=== PATIENT | female | born 1965 | race Caucasian/White ===

== ENCOUNTER 2017-09-07 15:17 | Emergency (ER) | payer SELFPAY | END 2017-09-07 18:50 | disposition home or self-care (01) | LOC: D.ER 15:17 | DX: J30.9 Allergic rhinitis, unspecified (principal); R05 Cough; R11.10 Vomiting, unspecified; R50.9 Fever, unspecified ==

== ENCOUNTER 2017-09-12 05:05 | Emergency (ER) | payer SELFPAY | END 2017-09-12 06:04 | disposition home or self-care (01) | LOC: D.ER 05:05 | DX: S83.91XA Sprain of unspecified site of right knee, initial encounter (principal); W01.0XXA Fall on same level from slipping, tripping and stumbling without subsequent striking against object, initial encounter; Y93.89 Activity, other specified; Y92.89 Other specified places as the place of occurrence of the external cause; I10 Essential (primary) hypertension ==

== ENCOUNTER 2018-01-13 22:18 | Emergency (ER) | payer SELFPAY ==
[~2018-01-13] VITALS: Ht 152.4 cm; Wt 84.1 kg
[2018-01-13 22:26] VITALS: Ht 152.4 cm; Wt 84.1 kg
[2018-01-14] MEDS ORDERED: NORCO 7.5/325 T1 TA1 PO (02:11)
[2018-01-14 02:26] VITALS: BP 144/81
== END 2018-01-14 02:26 | disposition home or self-care (01) ==
LOC: D.ER 22:18
DX: S93.402A Sprain of unspecified ligament of left ankle, initial encounter (principal); X50.1XXA Overexertion from prolonged static or awkward postures, initial encounter; Y93.89 Activity, other specified; Y92.89 Other specified places as the place of occurrence of the external cause; I10 Essential (primary) hypertension

== ENCOUNTER 2018-10-18 13:14 | Emergency (ER) | payer SELFPAY ==
[~2018-10-18] VITALS: Ht 152.4 cm; Wt 74.2 kg
[~2018-10-18 13:14] MED LIST: NORCO 7.5/325 T1 TA1 PO
[2018-10-18 13:18] VITALS: Ht 152.4 cm; Wt 74.2 kg
[2018-10-18 14:10] LABS: BASOPHILS 0.3 % (0-2); EOSINOPHILS 2.3 % (0-7); HEMATOCRIT 26.1 % (36.0-48.0); MCHC 25.7 g/dL (31.0-37.0); MCV 62.6 fL (80.0-100.0); MEAN PLATELET VOLUME 9.3 fL (7.4-10.4); MONOCYTES 6.5 % (2-11); NEUTROPHILS 69.9 % (40-80); PLATELET COUNT 283 10x3/uL (130-400); RBC 4.17 10x6/uL (4.00-5.40); RDW 20.6 % (11.5-14.5)
[2018-10-18 14:11] LABS: MCH 16.1 pg (26.0-34.0)
[2018-10-18 14:19] LABS: HEMOGLOBIN 6.7 g/dL (12-16)
[2018-10-18 14:23] LABS: ALBUMIN 3.4 g/dL (3.4-5.0); ALKALINE PHOSPHATASE 124 U/L (46-116); ALT (SGPT) 17 U/L (10-68); BILIRUBIN - TOTAL 0.43 mg/dL (0.2-1.3); CALC OSMOLALITY 279 mosm/kg (275-300); CALCIUM 8.8 mg/dL (8.5-10.1); CHLORIDE - SERUM 105 mmol/L (98-107); CREATININE - SERUM 0.6 mg/dL (0.6-1.3); GLUCOSE 109 mg/dL (74-106); POTASSIUM - SERUM 3.9 mmol/L (3.5-5.1); PROTEIN - SERUM 8.1 g/dL (6.4-8.2); SODIUM 141 mmol/L (136-145); UREA NITROGEN 8 mg/dL (7-18); eGFR NON AFRICAN AMERICAN > 90 mL/min (90-120)
[2018-10-18 14:25] LABS: AMYLASE - SERUM 34 U/L (25-115); LIPASE 96 U/L (73-393)
[2018-10-18 14:34] LABS: TROPONIN-I < 0.017 ng/mL (0.000-0.060)
[2018-10-18 15:03] LABS: APPEARANCE HAZY (CLEAR); BILIRUBIN NEGATIVE (NEGATIVE); COLOR YELLOW (YELLOW); GLUCOSE NEGATIVE (NEGATIVE); KETONE NEGATIVE (NEGATIVE); NITRITE NEGATIVE (NEGATIVE); PROTEIN TRACE mg/dL (NEGATIVE); UROBILINOGEN NORMAL (NORMAL)
[2018-10-18 15:06] LABS: EPITHELIAL CELLS 0-5 /hpf (0-5); RED CELLS - URINE 0-5 /hpf (0-5)
[2018-10-18 15:08] LABS: BACTERIA MODERATE /hpf (NONE SEEN); MUCUS <1+ /lpf (NONE SEEN)
[2018-10-18 15:17] LABS: % SATURATION 3 % (15-55); IRON 15 ug/dl (35-150); TOTAL IRON BIND CAPACITY 482 ug/dl (260-445)
[2018-10-18 15:19] LABS: UNSAT IRON BIND CAPACITY 467 ug/dl (150-375)
[2018-10-18] MEDS ORDERED: FERROUS GLUCON324 MG PO (17:44)
[2018-10-18] MEDS ORDERED: ZOFRAN ODT4 MG/UDTAB PO (17:44)
[2018-10-18] MEDS ORDERED: CIPRO250 MG PO (17:44)
[2018-10-18 18:05] VITALS: BP 108/54
== END 2018-10-18 18:06 | disposition home or self-care (01) ==
LOC: D.ER 13:14
PROVIDERS: Family Medicine
DX: N39.0 Urinary tract infection, site not specified (principal); D50.9 Iron deficiency anemia, unspecified

== ENCOUNTER 2019-01-26 07:24 | Emergency (ER) | payer MEDICARE ==
[~2019-01-26] VITALS: Ht 152.4 cm; Wt 74.8 kg
[~2019-01-26 07:24] MED LIST changes: +CIPRO250 MG PO; +FERROUS GLUCON324 MG PO; +ZOFRAN ODT4 MG/UDTAB PO
[2019-01-26 07:31] VITALS: BP 173/88; Ht 152.4 cm; Wt 74.8 kg
[2019-01-26] MEDS ORDERED: KEFLEX500 MG PO (07:50)
== END 2019-01-26 08:01 | disposition home or self-care (01) ==
LOC: D.ER 07:24
DX: J02.9 Acute pharyngitis, unspecified (principal); I10 Essential (primary) hypertension

== ENCOUNTER 2019-05-13 21:52 | Emergency (ER) | payer MEDICARE ==
[~2019-05-13] VITALS: Ht 152.4 cm; Wt 75.0 kg
[~2019-05-13 21:52] MED LIST changes: +KEFLEX500 MG PO
[2019-05-13 22:00] VITALS: Ht 152.4 cm; Wt 75.0 kg
[2019-05-13] MEDS ORDERED: ZOFRAN8 MG PO (23:46)
[2019-05-13] MEDS ORDERED: CYCLOBENZAPRINE10 MG PO (23:46)
[2019-05-14 00:35] VITALS: BP 135/76
== END 2019-05-14 00:25 | disposition home or self-care (01) ==
LOC: D.ER 21:52
DX: S16.1XXA Strain of muscle, fascia and tendon at neck level, initial encounter (principal); W19.XXXA Unspecified fall, initial encounter; Y93.9 Activity, unspecified; Y92.9 Unspecified place or not applicable; F07.81 Postconcussional syndrome; I10 Essential (primary) hypertension; R11.0 Nausea; R42 Dizziness and giddiness

== ENCOUNTER 2019-05-23 22:08 | Inpatient (IN) | payer MEDICARE ==
[~2019-05-23] VITALS: Ht 152.4 cm; Wt 75.0 kg
[~2019-05-23 22:08] MED LIST changes: +CYCLOBENZAPRINE10 MG PO; +ZOFRAN8 MG PO
[2019-05-23 23:51] LABS: LYMPHOCYTES 30.6 % (15-50); MCHC 24.1 g/dL (31.0-37.0); MCV 62.8 fL (80.0-100.0); MEAN PLATELET VOLUME 8.6 fL (7.4-10.4); PLATELET COUNT 321 10x3/uL (130-400); RDW 20.5 % (11.5-14.5)
[2019-05-23 23:52] LABS: MCH 15.1 pg (26.0-34.0)
[2019-05-23 23:53] LABS: HEMOGLOBIN 6.5 g/dL (12-16)
[2019-05-24] VITALS (21 sets, daily range): BP systolic 117–145; BP diastolic 63–89; Ht 152.4 cm; Wt 75.0 kg
[2019-05-24] LABS: CALC OSMOLALITY 264 mosm/kg (275-300); CALCIUM 8.6 mg/dL (8.5-10.1); CARBON DIOXIDE 27.3 mmol/L (21.0-32.0); CHLORIDE - SERUM 101 mmol/L (98-107); CREATININE - SERUM 0.6 mg/dL (0.6-1.3); GLUCOSE 96 mg/dL (74-106); POTASSIUM - SERUM 4.2 mmol/L (3.5-5.1); SODIUM 133 mmol/L (136-145); UREA NITROGEN 9 mg/dL (7-18); eGFR NON AFRICAN AMERICAN > 90 mL/min (90-120)
[2019-05-24 00:06] LABS: ALBUMIN 3.4 g/dL (3.4-5.0); ALKALINE PHOSPHATASE 124 U/L (30-120); ALT (SGPT) 16 U/L (10-68); BILIRUBIN - TOTAL 0.31 mg/dL (0.2-1.3)
[2019-05-24 00:07] LABS: UDS - AMPHET NEGATIVE QUAL (NEGATIVE); UDS - BARB NEGATIVE QUAL (NEGATIVE); UDS - BENZO NEGATIVE QUAL (NEGATIVE); UDS - COCAINE NEGATIVE QUAL (NEGATIVE); UDS - OPIATE NEGATIVE QUAL (NEGATIVE); UDS - PCP NEGATIVE QUAL (NEGATIVE); UDS - THC NEGATIVE QUAL (NEGATIVE)
[2019-05-24 00:11] LABS: APPEARANCE CLEAR (CLEAR); BILIRUBIN NEGATIVE (NEGATIVE); COLOR YELLOW (YELLOW); GLUCOSE NEGATIVE (NEGATIVE); KETONE NEGATIVE (NEGATIVE); NITRITE NEGATIVE (NEGATIVE); PROTEIN NEGATIVE (NEGATIVE); SPECIFIC GRAVITY 1.015 (1.005-1.020); UROBILINOGEN NORMAL (NORMAL)
[2019-05-24 00:12] LABS: BACTERIA NONE SEEN /hpf (NEGATIVE); EPITHELIAL CELLS 0-5 /hpf (0-5); RED CELLS - URINE NONE SEEN /hpf (0-5); WHITE CELLS - URINE 0-5 /hpf (NEGATIVE)
--- NOTE | 2019-05-24 01:20 | NUR ---
PT ARRIVED VIA STRETCHER BY UMER DOE. PT SCOOTED FROM STRETCHER TO BED WITH NO ASSISTANCE. PT ALERT AND ORIENTED, DENIES ANY PAIN. VSS, NO SIGNS OF DISTRESS NOTED. O2 100 ON RA. R FOREARM PIV PATENT, DRESSING CDI. L AC PIV PATENT, DRESSING CDI, SEE IV FLOWSHEET. ABD FIRM, DISTENTED, PT DENIES ANY PAIN/DISCOMFORT/NAUSEA. CALL LIGHT IN REACH, BED IN LOWEST POSITION. WILL MONITOR.
--- NOTE | 2019-05-24 02:30 | NUR ---
PT C/O DULL, THROBBING HEADACHE. PRN MORPHINE GIVEN PER MAR. WILL REASSESS.
--- NOTE | 2019-05-24 02:45 | NUR ---
PT REFUSING BLOOD PRODUCTS AT THIS TIME, STATES SHE HAS HAD TRANSFUSION REACTIONS IN THE PAST. STATES SHE BELIEVES THE BLEEDING IS FROM HEMORRHOIDS. DENIES ANY DIZZINESS OR NAUSEA.
--- NOTE | 2019-05-24 03:30 | NUR ---
PT REQUESTING ICE CHIPS. DENIES ANY OTHER NEEDS AT THIS TIME, WILL CONTINUE TO MONITOR.
--- NOTE | 2019-05-24 05:25 | NUR ---
PT RESTING QUIETLY IN BED. DENIES ANY NEEDS AT THIS TIME. CALL LIGHT IN REACH, WILL CONTINUE TO MONITOR.
[2019-05-24 05:55] LABS: APTT 25.1 SECONDS (22.8-39.4); INR 1.04 (0.85-1.17); PROTIME 13.6 SECONDS (11.6-15.0)
[2019-05-24 06:13] LABS: BASOPHILS 0.3 % (0-2); EOSINOPHILS 2.1 % (0-7); HEMATOCRIT 23.3 % (36.0-48.0); IMMATURE GRANULOCYTES 0.1 % (0-5); LYMPHOCYTES 23.4 % (15-50); MCHC 24.5 g/dL (31.0-37.0); MCV 61.8 fL (80.0-100.0); MONOCYTES 6.3 % (2-11); NEUTROPHILS 67.8 % (40-80); PLATELET COUNT 276 10x3/uL (130-400); RBC 3.77 10x6/uL (4.00-5.40); RDW 21.3 % (11.5-14.5); WBC 7.3 10x3/uL (4.8-10.8)
[2019-05-24 06:17] LABS: ALBUMIN 3.1 g/dL (3.4-5.0); ALKALINE PHOSPHATASE 111 U/L (30-120); ALT (SGPT) 16 U/L (10-68); BILIRUBIN - TOTAL 0.39 mg/dL (0.2-1.3); CALC OSMOLALITY 273 mosm/kg (275-300); CALCIUM 8.2 mg/dL (8.5-10.1); CARBON DIOXIDE 27.8 mmol/L (21.0-32.0); CHLORIDE - SERUM 103 mmol/L (98-107); CREATININE - SERUM 0.6 mg/dL (0.6-1.3); FERRITIN 3 ng/mL (3-244); GLUCOSE 94 mg/dL (74-106); MAGNESIUM - SERUM 2.2 mg/dL (1.8-2.4); PHOSPHOROUS 3.4 mg/dL (2.5-4.9); PROTEIN - SERUM 7.5 g/dL (6.4-8.2); SODIUM 138 mmol/L (136-145); UREA NITROGEN 8 mg/dL (7-18); eGFR NON AFRICAN AMERICAN > 90 mL/min (90-120)
[2019-05-24 06:20] LABS: HEMOGLOBIN 5.7 g/dL (12-16); MCH 15.1 pg (26.0-34.0)
--- NOTE | 2019-05-24 06:30 | NUR ---
PT INFORMED OF CRITICAL HGB LEVEL AND INFORMED OF BENEFITS OF PRBC TRANSFUSION, PT STILL REFUSING BLOOD TRANSFUSTION AT THIS TIME.
[2019-05-24 06:34] LABS: % SATURATION 2 % (15-55); IRON 12 ug/dl (35-150); TOTAL IRON BIND CAPACITY 416 ug/dl (260-445); UNSAT IRON BIND CAPACITY 404 ug/dl (150-375)
--- NOTE | 2019-05-24 07:30 | NUR ---
BEDSIDE SHIFT REPORT GIVEN. ASSUMED CARE FOR THIS PT. INTRODUCED MYSELF PRIMARY RN FOR TODAYS SHIFT. PT RESTING QUIETLY IN BED DENIES ANY CURRENT PAIN OR NEEDS AT THIS TIME. CL IN REACH, WILL CHECK CHART AND ORDERS AND CPOC.
--- NOTE | 2019-05-24 08:04 | NUR ---
CONSENTS OBTAINED FOR EGD WITH TIVA AND PROCEDURE EXPLAINED TO PT. PT IS NOW NPO AND VERBALIZED UNDERSTANDING. DENIES ANY QUESTIONS OR CONCERNS.
--- NOTE | 2019-05-24 08:53 | NUR ---
ASSISTED PT TO BEDSIDE COMMODE. PT VOIDED 400ML CONCENTRATED URINE. PT DENIES ANY HEADACHE OR DIZZINESS AND STATES SHE IS FEELING GOOD OVERALL. PT STATES SHE IS CONSIDERING BLOOD TRANSFUSION AND WILL DISCUSS WITH HER DAUGHTER. CL IN REACH, BED IN LOWEST, SIDE RAILS X2. WILL CTM.
--- NOTE | 2019-05-24 11:25 | NUR ---
PT REMAINS NPO. DENIES ANY CURRENT PAIN OR NEEDS. WAITING ON EGD FOR LATER THIS AFTERNOON. PTS DAUGHTER ALEN CALLED AND WAS UPDATED ON STATUS PER PTS REQUEST. CL IN REACH, BED IN LOWEST, SIDE RAILS X2. WILL CTM.
[2019-05-24 12:22] LABS: HEMATOCRIT 22.1 % (36.0-48.0); HEMOGLOBIN 5.6 g/dL (12-16)
--- NOTE | 2019-05-24 12:31 | NUR ---
HGB RESULTED AND REMAINS CRITICALLY LOW. EXPLAINED TO PT AND SHE IS COMPLETELY AWARE AND VERBALIZED UNDERSTANDING. PT WAS GOING TO AGREE FOR TRANSFUSION AND ALLOW ME TO GIVE HER BENADRYL A PRE-MEDICATION TO HELP WITH ANY POSSIBLE REACTION HOWEVER NOW STATES SHE WANTS TO WAIT ON THE EGD TO BE DONE AND THEN DECIDE. EXTENSIVE TEACHING PROVIDED BUT PT IS FULLY AWARE AND STILL DOES NOT WANT BLOOD AT THIS TIME. VSS AND PT DENIES ANY DIZZINESS OR S/S OF ANEMIA AT THIS TIME. WILL CTM.
--- NOTE | 2019-05-24 14:30 | NUR ---
PT RESTING QUIETLY IN BED WATCHING TV. VSS. PT REMAINS NPO WAITING ON PROCEDURE FOR LATER THIS AFTERNOON. PT DENIES ANY CURRENT PAIN OR NEEDS AT THIS TIME. CL IN REACH. WILL CTM.
--- NOTE | 2019-05-24 16:32 | NUR ---
GI LAB CALLED TO PRE-OP PT. PRE-OP MEDICATIONS GIVEN ORDERED. ASSISTED PT TO BEDSIDE COMMODE AND SHE VOIDED 500ML YELLOW URINE. PT DENIES ANY CURRENT PAIN OR NEEDS AT THIS TIME. CL IN REACH, BED IN LOWEST, SIDE RAILS X2. WILL CTM.
--- NOTE | 2019-05-24 17:37 | NUR ---
EGD COMPLETED AT BEDSIDE. PT AWAKE AND RESTING QUIETLY IN BED. AT BEDSIDE AND EXPLAINED FINDINGS TO PT. NO ACTIVE BLEED AND HE STATES PT MAY TRANSFER TO FLOOR IF OKAY WITH PRIMARY. PT STILL IS REFUSING A BLOOD TRANSFUSION AND STATES THIS IS JUST HER BASELINE. PT IS CHOOSING TO HAVE A COLONOSCOPY TOMORROW AND HER HEMMORROIDS LOOKED AT FOR FURTHER BLEEDING. PROCEDURE AND RISK EXPLAINED TO PT AND PT VERBALIZED UNDERSTANDING. PT CAN HAVE CLEAR LIQUID UNTIL MIDNIGHT AND I WILL PROVIDE IT TO HER. NO CURRENT NEEDS. WILL CTM.
--- NOTE | 2019-05-24 18:30 | NUR ---
PT WORKING ON DRINKING HER GOLYTELY DENIES ANY CURRENT PAIN OR NEEDS. VSS. PT IS GOING TO BE NPO FOR COLONOSCOPY TOMORROW AND VERBALIZED UNDERSTANDING. D/C PROTONIX DRIP ORDERED. NO CURRENT NEEDS.
--- NOTE | 2019-05-24 19:00 | NUR ---
BEDSIDE REPORT AND SHIFT ASSESSMENT COMPLETE, SEE FLOWSHEET. VSS, NO SIGNS OF ACUTE DISTRESS NOTED. PT DENIES ANY NEEDS AT THIS TIME.
[2019-05-24 19:13] LABS: HEMATOCRIT 23.4 % (36.0-48.0)
[2019-05-24 19:15] LABS: HEMOGLOBIN 5.7 g/dL (12-16)
--- NOTE | 2019-05-24 21:00 | NUR ---
FAMILY ON PHONE, UPDATE GIVEN.
--- NOTE | 2019-05-24 23:00 | NUR ---
PT SITTING ON BEDSIDE COMMODE, DRINKING BOWEL PREP. DENIES ANY NEEDS AT THIS TIME. CALL LIGHT IN REACH.
--- NOTE | 2019-05-25 01:00 | NUR ---
PT SLEEPING. VSS, NO SIGNS OF ACUTE DISTRESS NOTED.
[2019-05-25 01:27] LABS: HEMATOCRIT 22.4 % (36.0-48.0)
[2019-05-25 01:38] LABS: HEMOGLOBIN 5.7 g/dL (12-16)
[2019-05-25 03:00] VITALS: BP 133/80
--- NOTE | 2019-05-25 05:00 | NUR ---
MEDS GIVEN PER MAR. VSS. PT DENIES ANY NEEDS AT THIS TIME.
[2019-05-25 05:24] LABS: ALBUMIN 2.9 g/dL (3.4-5.0); ALKALINE PHOSPHATASE 107 U/L (30-120); ALT (SGPT) 13 U/L (10-68); BILIRUBIN - TOTAL 0.31 mg/dL (0.2-1.3); CALC OSMOLALITY 277 mosm/kg (275-300); CALCIUM 7.9 mg/dL (8.5-10.1); CARBON DIOXIDE 28.2 mmol/L (21.0-32.0); CHLORIDE - SERUM 107 mmol/L (98-107); CREATININE - SERUM 0.6 mg/dL (0.6-1.3); GLUCOSE 85 mg/dL (74-106); MAGNESIUM - SERUM 2.1 mg/dL (1.8-2.4); PHOSPHOROUS 3.6 mg/dL (2.5-4.9); POTASSIUM - SERUM 3.7 mmol/L (3.5-5.1); PROTEIN - SERUM 6.8 g/dL (6.4-8.2); SODIUM 141 mmol/L (136-145); UREA NITROGEN 6 mg/dL (7-18); eGFR NON AFRICAN AMERICAN > 90 mL/min (90-120)
[2019-05-25 05:37] LABS: BASOPHILS 0.2 % (0-2); EOSINOPHILS 2.4 % (0-7); IMMATURE GRANULOCYTES 0.2 % (0-5); LYMPHOCYTES 27.7 % (15-50); MCV 61.5 fL (80.0-100.0); MEAN PLATELET VOLUME 9.2 fL (7.4-10.4); NEUTROPHILS 61.5 % (40-80); PLATELET COUNT 272 10x3/uL (130-400); RBC 3.58 10x6/uL (4.00-5.40); RDW 20.7 % (11.5-14.5)
[2019-05-25 05:38] LABS: HEMOGLOBIN 5.5 g/dL (12-16); MCH 15.4 pg (26.0-34.0)
[2019-05-25 07:00] VITALS: BP 145/77
--- NOTE | 2019-05-25 07:10 | NUR ---
REPORT TAKEN AND CARE ASSUMED AT THIS TIME. INTRODUCED SELF TO PATIENT. INITIAL ASSESSMENT COMPLETE. VSS. DISCUSSED PLAN OF CARE FOR TODAY WITH PATIENT. DENIES ANY NEEDS AT THIS TIME.
--- NOTE | 2019-05-25 08:50 | NUR ---
PATIENT SITTING UP IN BED WATCHING TV. DENIES NEEDS AT THIS TIME.
[2019-05-25 11:00] VITALS: BP 162/86
--- NOTE | 2019-05-25 11:17 | NUR ---
PATIENT RESTING WITH EYES CLOSED. VSS. WILL CONITNUE TO MONITOR.
[2019-05-25 12:10] LABS: HEMATOCRIT 21.8 % (36.0-48.0)
[2019-05-25 12:35] LABS: HEMOGLOBIN 5.4 g/dL (12-16)
--- NOTE | 2019-05-25 13:16 | NUR ---
Nutrition follow-up: Pt for colonoscopy today Labs reviewed Wt: 176# RDN following.
[2019-05-25 15:00] VITALS: BP 141/85
--- NOTE | 2019-05-25 15:29 | NUR ---
PRE-OP EKG COMPLETE
--- NOTE | 2019-05-25 16:50 | NUR ---
GI AT BEDSIDE TO SETUP FOR COLONOSCOPY
--- NOTE | 2019-05-25 17:30 | NUR ---
COLONOSCOPY COMPLETE. PATIENT TOLERATED WELL. A/O X4. VSS.
[2019-05-25 18:24] LABS: HEMOGLOBIN 5.4 g/dL (12-16)
--- NOTE | 2019-05-25 21:46 | NUR ---
PT SITTING UP IN BED AWAKE ALERT AND ORIENTED. NO SINGS OR SYMPTOMS OF DISTRESS NOTED. CONTINENT OF BOWELL AND BLADDER. BOWELL SOUNDS ACTIVE x4 RESPIRATIONS EVEN AND UNLABORED. PT REQUEST FOR SOMETHING TO EAT. TURKEY SANDWHICH SET UP AND SPRITE GIVEN. CALL LIGHT WITH IN REACH AND BED IN LOWEST POSITION. PT ENCOURAGE TO CALL FOR HELP WHEN NEEDED. WILL CONTINUE TO OBSERVE.
[2019-05-25 23:42] VITALS: BP 102/55
--- NOTE | 2019-05-25 23:45 | NUR ---
PT HAS NO COMPLAINTS AT THIS TIME. WILL CONTINUE TO MONITOR
--- NOTE | 2019-05-26 00:46 | NUR ---
NO FURTHER CHANGES. DRESSING TO LEFT GROIN IS CLEAN DRY AND INTACT. STILL NO PEDAL PULSESWITH PALPATION OR WITH DOPPLER. PT IS IN SUPINE POSITION NO SIGNS OR SYMPTOMS OF DISTRESS NOTED. WILL CONTINUE TO OBSERVE.
--- NOTE | 2019-05-26 00:55 | NUR ---
PT LYING IN BED WITH EYES CLOSED. EASILY AWAKEN WITH VOICE STIMULATION. TOLERATED MEAL WELL. WILL CONTINUE TO OBSERVE
[2019-05-26 02:38] VITALS: BP 102/55
[2019-05-26 04:46] LABS: BASOPHILS 0.4 % (0-2); EOSINOPHILS 2.7 % (0-7); HEMATOCRIT 21.2 % (36.0-48.0); LYMPHOCYTES 26.7 % (15-50); MCV 61.1 fL (80.0-100.0); MONOCYTES 6.4 % (2-11); NEUTROPHILS 63.8 % (40-80); PLATELET COUNT 264 10x3/uL (130-400); RBC 3.47 10x6/uL (4.00-5.40); RDW 20.9 % (11.5-14.5); WBC 5.1 10x3/uL (4.8-10.8)
[2019-05-26 04:48] LABS: HEMOGLOBIN 5.3 g/dL (12-16); MCH 15.3 pg (26.0-34.0)
[2019-05-26 04:57] LABS: ALKALINE PHOSPHATASE 106 U/L (30-120); ALT (SGPT) 14 U/L (10-68); BILIRUBIN - TOTAL 0.35 mg/dL (0.2-1.3); CALC OSMOLALITY 277 mosm/kg (275-300); CALCIUM 8.3 mg/dL (8.5-10.1); CARBON DIOXIDE 26.3 mmol/L (21.0-32.0); CHLORIDE - SERUM 105 mmol/L (98-107); CREATININE - SERUM 0.6 mg/dL (0.6-1.3); GLUCOSE 95 mg/dL (74-106); MAGNESIUM - SERUM 2.2 mg/dL (1.8-2.4); PHOSPHOROUS 3.6 mg/dL (2.5-4.9); POTASSIUM - SERUM 3.7 mmol/L (3.5-5.1); SODIUM 141 mmol/L (136-145); UREA NITROGEN 5 mg/dL (7-18); eGFR NON AFRICAN AMERICAN > 90 mL/min (90-120)
--- NOTE | 2019-05-26 05:00 | NUR ---
LAB CALLED CRTICAL H&H 5.3. H&H 5.4 ON 05/25/2019 PT ALERT AND ORIENTED x4 NO SIGNS OR SYMPTOMS OF DISTRESS NOTED. WILL CONTINUE TO OBSERVE.
[2019-05-26 05:14] VITALS: BP 135/74
--- NOTE | 2019-05-26 05:26 | NUR ---
PATIENT UP TO BSC WITHOUT ASSIST. NO CHANGES IN CONDITION FROM PREVIOUS ASSESSMENT. PATIENT CM IS SR WITH 1ST DEGREE BLOCK NOTED AT 91BPM. CALL LIGHT WITHIN REACH. PATIENT VOIDS YELLOW URINE AND IS ALERT AND ORIENTED. CALL LIGHT WITHIN REACH, BED IN LOW POSITION.
[2019-05-26 07:00] VITALS: BP 149/81
[2019-05-26 11:00] VITALS: BP 135/85
[2019-05-26 15:00] VITALS: BP 127/68
[2019-05-26 17:19] LABS: HEMATOCRIT 21.8 % (36.0-48.0)
[2019-05-26 17:21] LABS: HEMOGLOBIN 5.5 g/dL (12-16)
[2019-05-26 19:00] VITALS: BP 151/88
--- NOTE | 2019-05-26 19:15 | NUR ---
PT RESTING IN BED WATCHING TV. SHE DENIES PAIN OR NEEDS. STATES SHE HAD BLOOD IN HER STOOL WHEN SHE HAD A SMALL BOWEL MOVEMENT TODAY. PER PT AND HER DAUGHTER SHE DOES NOT WANT A BLOOD TRANSFUSION UNLESS HER HEMOGLOBIN IS LESS THAN 5. BED LOW AND CALL LIGHT WITHIN REACH.
[2019-05-27] VITALS (7 sets, daily range): BP systolic 99–151; BP diastolic 40–88
--- NOTE | 2019-05-27 00:14 | NUR ---
PT RESTING IN BED WITH EYES CLOSED. VSS. RESPIRATIONS EVEN AND UNLABORED. BED IS LOW AND CALL LIGHT WITHIN REACH.
[2019-05-27 04:27] LABS: BASOPHILS 0.1 % (0-2); EOSINOPHILS 3.1 % (0-7); HEMATOCRIT 24.3 % (36.0-48.0); IMMATURE GRANULOCYTES 0.1 % (0-5); LYMPHOCYTES 24.3 % (15-50); MCHC 25.1 g/dL (31.0-37.0); MONOCYTES 6.2 % (2-11); NEUTROPHILS 66.2 % (40-80); RBC 3.92 10x6/uL (4.00-5.40); RDW 21.2 % (11.5-14.5)
[2019-05-27 04:54] LABS: ALBUMIN 3.2 g/dL (3.4-5.0); ALKALINE PHOSPHATASE 108 U/L (30-120); ALT (SGPT) 8 U/L (10-68); CALC OSMOLALITY 276 mosm/kg (275-300); CALCIUM 8.3 mg/dL (8.5-10.1); CARBON DIOXIDE 23.2 mmol/L (21.0-32.0); CHLORIDE - SERUM 105 mmol/L (98-107); CREATININE - SERUM 0.6 mg/dL (0.6-1.3); GLUCOSE 122 mg/dL (74-106); MAGNESIUM - SERUM 2.1 mg/dL (1.8-2.4); PHOSPHOROUS 2.5 mg/dL (2.5-4.9); POTASSIUM - SERUM 3.9 mmol/L (3.5-5.1); PROTEIN - SERUM 7.4 g/dL (6.4-8.2); SODIUM 139 mmol/L (136-145); UREA NITROGEN 7 mg/dL (7-18); eGFR NON AFRICAN AMERICAN > 90 mL/min (90-120)
[2019-05-27 04:58] LABS: WBC 7.4 10x3/uL (4.8-10.8)
[2019-05-27 05:01] LABS: HEMOGLOBIN 6.1 g/dL (12-16); MCH 15.6 pg (26.0-34.0); PLATELET COUNT 338 10x3/uL (130-400)
--- NOTE | 2019-05-27 06:37 | NUR ---
RESIVED FROM ICU, ALERT AND ORENTED X4 UP AT JORDYN . WALKING IN ROOM STABLE. IV TO LEFT AC, AND RIGHT FA. ORENTED TO ROOM AND CALL LIGHT
--- NOTE | 2019-05-27 07:20 | NUR ---
PT IS RESTING IN BED WITH EYES OPEN. RESPIRATIONS ARE EVEN AND UNLABORED. PT IS AAO X 4. PT STATES "I DONT WANT TO GET ANY BLOOD UNLESS MY LEVEL IS BELOW A 5". PT DENIES A RECENT BM. PT DENIES PRESENCE OF BLOOD WHEN URINATING. PIV TO RIGHT FA IS SL AND FLUSHES WITHOUT DIFFICUTLY. PIV TO LEFT AC INFUSING WITHOUT DIFFICULTY. PT DENIES PRESENCE OF PAIN/N/V. BED IS IN THE LOWEST POSITION. CALL LIGHT AND BEDSIDE TABLE ARE WITIHN REACH. SIDE RAILS X 2. PT DENIES FUTHER NEEDS. WILL CONT TO MONITOR.
--- NOTE | 2019-05-27 14:17 | MORECARE ---
CASE MANAGEMENT DISCHARGE SUMMARY PATIENT: REBECCA SULTANA UNIT: [id number] ADM DATE: 05/24/19 AGE: 54 : 65 SEX: F ROOM/BED: D.2236 AUTHOR: KEISHA,DOC PHYSICIAN: REFERRING PHYSICIAN: ZAIRA KIRKPATRICK MD DATE OF SERVICE: 05/27/19 Discharge Plan Patient Name: REBECCA SULTANA Facility: [facility]:[place] : 1965 Planned Disposition: Home Anticipated Discharge Date: 05/28/19 Discharge Date: Expected LOS: 4 Initial Reviewer: [email or web address] Initial Review Date: 05/27/2019 Generated: 05/27/19 3:17 pm Comments DCP- Discharge Planning Updated by [email or web address]: Tressa Adan on 05/27/19 1:[address] Patient Name: REBECCA SULTANA Admission Status: ER Accout number: [id number] Admission Date: 05-24-2019 : 1965 Admission Diagnosis: Attending: ZAIRA KIRKPATRICK Current LOS: 3 Anticipated DC Date: 05-28-2019 Planned Disposition: Home Primary Insurance: [email or web address] Discharge Planning Comments: CM met with patient to complete initial dc planning assessment. CM educated patient on the CM role and verbal consent given by patient to complete assessment. Patient lives at home with her daughter. At discharge patient plans to return and feels this is a safe discharge. CM discussed availability of home health, rehab services, and medical equipment. Patient denied known discharge needs at this time. CM will continue to follow and will assist as needed with dc plans/needs. Testing Specialist: Tressa Adan DCPIA - Discharge Planning Initial Assessment Updated by [email or web address]: Tressa Adan on 05/27/19 2:15 pm * Is the patient Alert and Oriented? Yes * How many steps to enter\exit or inside your home? 3/0 * PCP Dr. Encinas * Pharmacy [facility] on [address] * Preadmission Environment Home with Family * ADLs Independent * Equipment None * List name and contact numbers for known caregivers / representatives who currently or will assist patient after discharge: Whitney [facility]es [facility] - [phone] * Verbal permission to speak to the caregivers and representatives has been obtained from the patient. Yes * Community resources currently utilized None * Additional services required to return to the preadmission environment? No * Can the patient safely return to the preadmission environment? Yes * Has this patient been hospitalized within the prior 30 days at any hospital? No Patient Name: REBECCA SULTANA Page [phone] at 1417 All edits/amendments must be made on the electronic document DICTATION DATE: 05/27/191416 ELECTRICAL LINE SPLICER: ROCÍO 05/27/191416 RPT#: [id number] DC DATE: STATUS: ADM IN [facility] [address] [place] [address] END OF REPORT
--- NOTE | 2019-05-27 18:23 | NUR ---
PT REPORTS RECENT BM. PT DESCRIBES STOOL "BROWN AND A LITTLE PINKISH". PT REPORTS "A LITTLE" PAIN WITH DEFECATION. PT DENIES FURTHER NEEDS.
[2019-05-27 19:58] LABS: HEMATOCRIT 20.1 % (36.0-48.0)
--- NOTE | 2019-05-27 21:00 | NUR ---
RECEIVED CALL FROM LAB ABOUT CRITICAL LAB OF HGB 5.0. CONSULTED WITH PT ABOUT RECEIVING BLOOD PRODUCTS. PT AGREED TO RECEIVE BLOOD. OBTAINED CONSENTS FOR BLOOD AND PLACED IN CHART. CALLED [facility] AND RECEIVED ORDERS TO TRANSFUSE BLOOD. A/O WITH NO SIGNS OF ACUTE DISTRESS. IV TO THE LT AC WITH NO REDNESS OR SWELLING NOTED. DENIES NEEDS AT THIS TIME. CONTINUE PLAN OF CARE.
--- NOTE | 2019-05-28 00:20 | NUR ---
INITIATED BLOOD TRANSFUSION. VOICES THAT SHE HAS REACTION TO BLOOD. STATES THAT IT MAKES HER SICK FEELING AND THAT SHE TAKES ZOFRAN AND BENADRYL. CALLED [facility] TO GET PREMEDS AND ADMIN. DISCUSSED S/S TO REPORT TO THIS NURSE. WILL CONTINUE TO MONITOR.
--- NOTE | 2019-05-28 03:20 | NUR ---
COMPLETED ONE UNIT OF PRBC. TOLERATED WELL. REQUESTS TO NOT RECEIVED SECOND UNIT OF BLOOD UNTIL AFTER AM LAB. ONCE RESULTS COME BACK SHE WILL DECIDE IF SHE'LL HAVE THE SECOND UNIT. CONTINUE WITH PLAN OF CARE.
[2019-05-28 04:00] VITALS: BP 110/84
[2019-05-28 05:46] LABS: BASOPHILS 0.4 % (0-2); EOSINOPHILS 3.1 % (0-7); IMMATURE GRANULOCYTES 0.3 % (0-5); LYMPHOCYTES 24.8 % (15-50); MCHC 26.9 g/dL (31.0-37.0); NEUTROPHILS 62.4 % (40-80); PLATELET COUNT 294 10x3/uL (130-400); RBC 4.11 10x6/uL (4.00-5.40); RDW 26.6 % (11.5-14.5); WBC 7.5 10x3/uL (4.8-10.8)
[2019-05-28 05:48] LABS: HEMATOCRIT 27.5 % (36.0-48.0); HEMOGLOBIN 7.4 g/dL (12-16); MCV 66.9 fL (80.0-100.0)
[2019-05-28 06:11] LABS: ALBUMIN 3.1 g/dL (3.4-5.0); ALKALINE PHOSPHATASE 99 U/L (30-120); BILIRUBIN - TOTAL 0.61 mg/dL (0.2-1.3); CALC OSMOLALITY 280 mosm/kg (275-300); CALCIUM 8.5 mg/dL (8.5-10.1); CARBON DIOXIDE 23.9 mmol/L (21.0-32.0); CHLORIDE - SERUM 108 mmol/L (98-107); CREATININE - SERUM 0.6 mg/dL (0.6-1.3); GLUCOSE 94 mg/dL (74-106); MAGNESIUM - SERUM 2.3 mg/dL (1.8-2.4); POTASSIUM - SERUM 4.1 mmol/L (3.5-5.1); PROTEIN - SERUM 7.2 g/dL (6.4-8.2); SODIUM 142 mmol/L (136-145); UREA NITROGEN 6 mg/dL (7-18); eGFR NON AFRICAN AMERICAN > 90 mL/min (90-120)
[2019-05-28 06:12] LABS: ALT (SGPT) 15 U/L (10-68); PHOSPHOROUS 3.4 mg/dL (2.5-4.9)
--- NOTE | 2019-05-28 07:10 | NUR ---
ALERT AND ORIENTED, RESTING IN BED WITH EYES OPEN. NO C/O PAIN. NO S/S OF ACUTE DISTRESS NOTED. HGB 7.4 THIS AM. 1 UNIT OF PRBC INFUSED ON PREVIOUS SHIFT. PATIENT WILL ALLOW 2ND UNIT OF PRBC TO BE INFUSED AFTER SHE EATS BREAKFAST. IV TO LEFT AC, SL AND RIGHT FOREARM, NS INFUSING @ KVO. SITES PATENT WITHOUT REDNESS OR SWELLING. DENIES ANY NEEDS AT THIS TIME. CALL LIGHT IN REACH. WILL CONTINUE TO MONITOR.
[2019-05-28 08:17] VITALS: BP 138/71
--- NOTE | 2019-05-28 10:20 | NUR ---
I have reviewed this patient and I concur with the Shift Assessment completed by the Licensed Practical Nurse today this shift.
[2019-05-28 11:48] VITALS: BP 147/78
[2019-05-28 16:29] VITALS: BP 132/97
--- NOTE | 2019-05-28 18:49 | NUR ---
ALERT AND ORIENTED, SITTING UP IN BED EATING SUPPER. C/O HEADACHE, GAVE TYLENOL PER PHYSICIAN ORDER. NO S/S OF ACUTE DISTRESS NOTED. DENIES ANY NEEDS AT THIS TIME. CALL LIGHT IN REACH. WILL CONTINUE TO MONITOR.
--- NOTE | 2019-05-28 19:00 | NUR ---
BEDSIDE REPORT RECEIVED AND CARE OF PT ASSUMED. PT LYING IN HIGH MINA'S POSITION WATCHING TV. IV TO LEFT AC PATENT WITH NS INFUSING AT 75 ML/HR. WILL MONITOR FOR NEEDS.
--- NOTE | 2019-05-28 19:35 | NUR ---
CALLED TO ROOM....PT VOIDED AND PASSED GAS, AND EXPELLED MODERATE AMOUNT OF BRIGHT RED BLOOD INTO TOILET.
[2019-05-28 20:09] LABS: HEMATOCRIT 31.4 % (36.0-48.0)
[2019-05-28 21:26] VITALS: BP 125/61
[2019-05-29 01:22] VITALS: BP 145/79
[2019-05-29 02:16] LABS: HEMATOCRIT 33.1 % (36.0-48.0); HEMOGLOBIN 9.4 g/dL (12-16)
[2019-05-29 05:37] VITALS: BP 146/77
[2019-05-29 06:27] LABS: BASOPHILS 0.3 % (0-2); EOSINOPHILS 3.6 % (0-7); HEMATOCRIT 32.1 % (36.0-48.0); HEMOGLOBIN 9.2 g/dL (12-16); IMMATURE GRANULOCYTES 0.3 % (0-5); LYMPHOCYTES 26.9 % (15-50); MCHC 28.7 g/dL (31.0-37.0); MONOCYTES 8.5 % (2-11); NEUTROPHILS 60.4 % (40-80); PLATELET COUNT 300 10x3/uL (130-400); RBC 4.59 10x6/uL (4.00-5.40); RDW 26.9 % (11.5-14.5); WBC 6.7 10x3/uL (4.8-10.8)
[2019-05-29 06:34] LABS: MCV 69.9 fL (80.0-100.0)
[2019-05-29 06:49] LABS: CALC OSMOLALITY 274 mosm/kg (275-300); CALCIUM 8.5 mg/dL (8.5-10.1); CARBON DIOXIDE 25.2 mmol/L (21.0-32.0); CHLORIDE - SERUM 104 mmol/L (98-107); CREATININE - SERUM 0.5 mg/dL (0.6-1.3); GLUCOSE 118 mg/dL (74-106); MAGNESIUM - SERUM 2.3 mg/dL (1.8-2.4); PHOSPHOROUS 3.4 mg/dL (2.5-4.9); POTASSIUM - SERUM 4.2 mmol/L (3.5-5.1); SODIUM 138 mmol/L (136-145); eGFR NON AFRICAN AMERICAN > 90 mL/min (90-120)
[2019-05-29 06:51] LABS: UREA NITROGEN 8 mg/dL (7-18)
--- NOTE | 2019-05-29 07:10 | NUR ---
ALERT AND ORIENTED, RESTING IN BED WITH EYES OPEN. C/O HEADACHE RADIATING FROM THE BACK OF THE HEAD. TYLENOL WAS GIVEN BY REY OWUSU ON PREVIOUS SHIFT THIS AM. NO S/S OF ACUTE DISTRESS NOTED. DENIES ANY NEEDS AT THIS TIME. CALL LIGHT IN REACH. WILL CONTINUE TO MONITOR.
[2019-05-29 08:01] VITALS: BP 151/89
--- NOTE | 2019-05-29 10:40 | NUR ---
I have reviewed this patient and I concur with the Shift Assessment completed by the Licensed Practical Nurse today this shift.
[2019-05-29 13:15] VITALS: BP 133/91
--- NOTE | 2019-05-29 15:35 | NUR ---
WENT OVER DISCHARGE PAPERWORK WITH PATIENT, VERBALIZED UNDERSTANDING. DISCONTINUED IV, CATHETER TIP INTACT. PATIENT WAITING FOR DAUGHTER TO GET OFF WORK TO PICK HER UP. WILL PASS ON TO NEXT SHIFT.
--- NOTE | 2019-05-29 18:24 | NUR ---
ALERT AND ORIENTED RESTING IN BED WITH EYES OPEN. NO C/O PAIN. NO S/S OF ACUTE DISTRESS NOTED. DENIES ANY NEEDS AT THIS TIME. CALL LIGHT IN REACH. WILL CONTINUE TO MONITOR.
[2019-05-29 20:00] VITALS: BP 150/77
--- NOTE | 2019-05-29 22:03 | NUR ---
PT ESCORTED TO MAIN ENTRANCE TO AWAITING FAMILY MEMBER VIA WHEELCHAIR. PT TOLD TO CALL HERE OR RETURN TO ER IF ANY PROBLEMS ARISE. TOLD TO FOLLOW UP WITH PCP PER D/C ORDERS.
--- NOTE | 2019-05-30 15:45 | MORECARE ---
CASE MANAGEMENT DISCHARGE SUMMARY PATIENT: REBECCA SULTANA UNIT: [id number] ADM DATE: 05/24/19 AGE: 54 : 65 SEX: F ROOM/BED: D.2236 AUTHOR: KEISHA,DOC PHYSICIAN: REFERRING PHYSICIAN: ZAIRA KIRKPATRICK MD DATE OF SERVICE: 05/30/19 Discharge Plan Patient Name: REBECCA SULTANA Facility: [facility]:[place] : 1965 Planned Disposition: Home Anticipated Discharge Date: 05/28/19 Discharge Date: 05/29/2019 Expected LOS: 4 Initial Reviewer: [email or web address] Initial Review Date: 05/27/2019 Generated: 05/30/19 4:45 pm DCP- Discharge Planning Updated by [email or web address]: Tressa Adan on 05/27/19 1:[address] Patient Name: REBECCA SULTANA Admission Status: ER Accout number: [id number] Admission Date: 05-24-2019 : 1965 Admission Diagnosis: Attending: ZAIRA KIRKPATRICK Current LOS: 3 Anticipated DC Date: 05-28-2019 Planned Disposition: Home Primary Insurance: [email or web address] Discharge Planning Comments: CM met with patient to complete initial dc planning assessment. CM educated patient on the CM role and verbal consent given by patient to complete assessment. Patient lives at home with her daughter. At discharge patient plans to return and feels this is a safe discharge. CM discussed availability of home health, rehab services, and medical equipment. Patient denied known discharge needs at this time. CM will continue to follow and will assist as needed with dc plans/needs. Structures Technician: Tressa Adan DCPIA - Discharge Planning Initial Assessment Updated by [email or web address]: Tressa Adan on 05/27/19 2:15 pm * Is the patient Alert and Oriented? Yes * How many steps to enter\exit or inside your home? 3/0 * PCP Dr. Encinas * Pharmacy [facility] on [address] * Preadmission Environment Home with Family * ADLs Independent * Equipment None * List name and contact numbers for known caregivers / representatives who currently or will assist patient after discharge: Whitney [facility] - [phone] * Verbal permission to speak to the caregivers and representatives has been obtained from the patient. Yes * Community resources currently utilized None * Additional services required to return to the preadmission environment? No * Can the patient safely return to the preadmission environment? Yes * Has this patient been hospitalized within the prior 30 days at any hospital? No Last DP export: 05/27/19 1:17 p Patient Name: REBECCA SULTANA Page [phone] at 1545 All edits/amendments must be made on the electronic document DICTATION DATE: 05/30/19 1545 MUSICAL THERAPIST: ROCÍO 05/30/19 1545 RPT#: [id number] DC DATE:05/29/19 STATUS: DIS IN [facility] [address] [place] [address] END OF REPORT
== END 2019-05-29 22:04 | disposition home or self-care (01) | DRG 394 ==
LOC: D.ER 22:08 → D.ICU 05-24 00:14 → D.MS 05-27 06:16
PROVIDERS: Family Medicine; Internal Medicine Gastroenterology; ADMIT Internal Medicine Nephrology; ATTEND Internal Medicine Nephrology
PROC: 0DB78ZX Excision of Stomach, Pylorus, Via Natural or Artificial Opening Endoscopic, Diagnostic (ICD-10-PCS; principal; 2019-05-24 15:45)
PROC: 0DJD8ZZ Inspection of Lower Intestinal Tract, Via Natural or Artificial Opening Endoscopic (ICD-10-PCS; 2019-05-25)
DX: K64.3 Fourth degree hemorrhoids (principal); E87.1 Hypo-osmolality and hyponatremia; D50.9 Iron deficiency anemia, unspecified; K29.40 Chronic atrophic gastritis without bleeding; F07.81 Postconcussional syndrome

== ENCOUNTER 2019-11-23 12:53 | Emergency (ER) | payer MEDICARE ==
[~2019-11-23] VITALS: Ht 152.4 cm; Wt 79.5 kg
[2019-11-23 13:04] VITALS: Ht 152.4 cm; Wt 79.5 kg
[2019-11-23 13:30] LABS: BASOPHILS 0.2 % (0-2); EOSINOPHILS 2.4 % (0-7); HEMATOCRIT 31.3 % (36.0-48.0); HEMOGLOBIN 8.4 g/dL (12-16); IMMATURE GRANULOCYTES 0.2 % (0-5); LYMPHOCYTES 21.4 % (15-50); MCH 18.2 pg (26.0-34.0); MCHC 26.8 g/dL (31.0-37.0); MCV 67.9 fL (80.0-100.0); MONOCYTES 5.7 % (2-11); NEUTROPHILS 70.1 % (40-80); PLATELET COUNT 287 10x3/uL (130-400); RBC 4.61 10x6/uL (4.00-5.40); RDW 19.4 % (11.5-14.5); WBC 6.4 10x3/uL (4.8-10.8)
[2019-11-23 13:40] LABS: CALC OSMOLALITY 278 mosm/kg (275-300); CARBON DIOXIDE 27.6 mmol/L (21.0-32.0); CHLORIDE - SERUM 105 mmol/L (98-107); CREATININE - SERUM 0.6 mg/dL (0.6-1.3); GLUCOSE 127 mg/dL (74-106); POTASSIUM - SERUM 3.9 mmol/L (3.5-5.1); SODIUM 139 mmol/L (136-145); UREA NITROGEN 11 mg/dL (7-18); eGFR NON AFRICAN AMERICAN > 90 mL/min (90-120)
[2019-11-23] MEDS ORDERED: MECLIZINE HCL25 MG PO (13:43)
[2019-11-23 13:45] LABS: ALBUMIN 3.5 g/dL (3.4-5.0); ALKALINE PHOSPHATASE 144 U/L (30-120); ALT (SGPT) 24 U/L (10-68); BILIRUBIN - TOTAL 0.51 mg/dL (0.2-1.3); PROTEIN - SERUM 7.8 g/dL (6.4-8.2)
[2019-11-23] MEDS ORDERED: LISINOPRIL-HCT1 EAC4 PO (13:45)
[2019-11-23] MEDS ORDERED: IPRATROPIUM BRO15 M1 NASAL (13:46)
[2019-11-23 14:30] VITALS: BP 162/87
== END 2019-11-23 14:30 | disposition home or self-care (01) ==
LOC: D.ER 12:53
PROVIDERS: Family Medicine
DX: R42 Dizziness and giddiness (principal); I10 Essential (primary) hypertension; Z91.19 Patient's noncompliance with other medical treatment and regimen; J30.2 Other seasonal allergic rhinitis

== ENCOUNTER 2020-02-09 00:42 | Inpatient (IN) | payer MEDICARE ==
[2020-02-09] VITALS (8 sets, daily range): BP systolic 126–168; BP diastolic 60–90; Ht 152.4 cm; Wt 71.4 kg
[~2020-02-09] VITALS: Ht 152.4 cm; Wt 71.4 kg
[~2020-02-09 00:42] MED LIST changes: +IPRATROPIUM BRO15 M1 NASAL; +LISINOPRIL-HCT1 EAC4 PO; +MECLIZINE HCL25 MG PO
--- NOTE | 2020-02-09 01:04 | NUR ---
REFUSING NITRO ADMIN AT THIS TIME. EDP NOTIFIED.
[2020-02-09 01:22] LABS: BASOPHILS 0.3 % (0-2); EOSINOPHILS 3.9 % (0-7); IMMATURE GRANULOCYTES 0.1 % (0-5); LYMPHOCYTES 27.2 % (15-50); MCHC 25.2 g/dL (31.0-37.0); MCV 63.7 fL (80.0-100.0); MEAN PLATELET VOLUME 9.6 fL (7.4-10.4); MONOCYTES 7.5 % (2-11); PLATELET COUNT 330 10x3/uL (130-400); RBC 3.61 10x6/uL (4.00-5.40); RDW 20.4 % (11.5-14.5); WBC 7.4 10x3/uL (4.8-10.8)
[2020-02-09 01:24] LABS: HEMOGLOBIN 5.8 g/dL (12-16); MCH 16.1 pg (26.0-34.0)
[2020-02-09 01:25] LABS: CALC OSMOLALITY 269 mosm/kg (275-300); CALCIUM 8.6 mg/dL (8.5-10.1); CARBON DIOXIDE 24.4 mmol/L (21.0-32.0); CHLORIDE - SERUM 105 mmol/L (98-107); CREATININE - SERUM 0.6 mg/dL (0.6-1.3); GLUCOSE 112 mg/dL (74-106); POTASSIUM - SERUM 3.5 mmol/L (3.5-5.1); SODIUM 136 mmol/L (136-145); UREA NITROGEN 5 mg/dL (7-18); eGFR NON AFRICAN AMERICAN > 90 mL/min (90-120)
[2020-02-09 01:28] LABS: APTT 23.4 SECONDS (22.8-39.4); PROTIME 13.2 SECONDS (11.6-15.0)
[2020-02-09 01:40] LABS: ALBUMIN 3.3 g/dL (3.4-5.0); ALKALINE PHOSPHATASE 117 U/L (30-120); ALT (SGPT) 14 U/L (10-68); BILIRUBIN - TOTAL 0.26 mg/dL (0.2-1.3); CKMB 0.5 U/L (0.0-3.6); CREATINE KINASE 43 UL (21-215); MAGNESIUM - SERUM 2.4 mg/dL (1.8-2.4); PROTEIN - SERUM 7.7 g/dL (6.4-8.2); TROPONIN-I < 0.017 ng/mL (0.000-0.060)
--- NOTE | 2020-02-09 02:16 | NUR ---
BLOOD CONSENT SIGNED BY PT AT THIS TIME.
--- NOTE | 2020-02-09 03:40 | NUR ---
BLOOD TRANSFUSION STARTED AT THIS TIME. SEE PAPER FORM.
--- NOTE | 2020-02-09 05:08 | NUR ---
PT'S FIRST UNIT OF PRBCS FINISHED AT THIS TIME.
--- NOTE | 2020-02-09 05:25 | NUR ---
PT'S SECOND UNIT OF PRBCS STARTED AT THIS TIME.
[2020-02-09 06:02] LABS: APTT 22.5 SECONDS (22.8-39.4); INR 1.11 (0.85-1.17); PROTIME 14.2 SECONDS (11.6-15.0)
[2020-02-09 06:05] LABS: % SATURATION 5 % (15-55); IRON 22 ug/dl (35-150); TOTAL IRON BIND CAPACITY 434 ug/dl (260-445); UNSAT IRON BIND CAPACITY 412 ug/dl (150-375)
[2020-02-09 06:20] LABS: HEMATOCRIT 25.3 % (36.0-48.0); LYMPHOCYTES 29.6 % (15-50); MCHC 26.9 g/dL (31.0-37.0); MEAN PLATELET VOLUME 9.4 fL (7.4-10.4); NEUTROPHILS 61.1 % (40-80); PLATELET COUNT 317 10x3/uL (130-400); RBC 3.77 10x6/uL (4.00-5.40); RDW 22.3 % (11.5-14.5); WBC 7.1 10x3/uL (4.8-10.8)
[2020-02-09 06:21] LABS: HEMOGLOBIN 6.8 g/dL (12-16); MCV 67.1 fL (80.0-100.0)
[2020-02-09 06:35] LABS: ALBUMIN 3.1 g/dL (3.4-5.0); ALKALINE PHOSPHATASE 107 U/L (30-120); ALT (SGPT) 15 U/L (10-68); BILIRUBIN - TOTAL 0.39 mg/dL (0.2-1.3); CALC OSMOLALITY 277 mosm/kg (275-300); CALCIUM 8.1 mg/dL (8.5-10.1); CARBON DIOXIDE 24.6 mmol/L (21.0-32.0); CHLORIDE - SERUM 107 mmol/L (98-107); CHOL - HDL RATIO 4.9 ratio (2.3-4.1); CHOLESTEROL, TOTAL 157 mg/dL (0-200); CREATININE - SERUM 0.6 mg/dL (0.6-1.3); FERRITIN 7 ng/mL (3-244); GLUCOSE 110 mg/dL (74-106); HDL CHOLESTEROL 32 mg/dL (32-96); LDL CHOLESTEROL 108 mg/dL (0-100); LDL-HDL RATIO 3.4 ratio (1.5-3.5); MAGNESIUM - SERUM 2.5 mg/dL (1.8-2.4); PHOSPHOROUS 3.3 mg/dL (2.5-4.9); POTASSIUM - SERUM 3.7 mmol/L (3.5-5.1); PRO BNP 58 pg/mL (0-125); PROTEIN - SERUM 6.8 g/dL (6.4-8.2); SODIUM 140 mmol/L (136-145); TRIGLYCERIDE 87 mg/dL (30-200); UREA NITROGEN 6 mg/dL (7-18); eGFR NON AFRICAN AMERICAN > 90 mL/min (90-120)
--- NOTE | 2020-02-09 06:45 | NUR ---
PT'S SECOND UNIT OF PRBCS FINISHED AT THIS TIME. PT DENIES NEEDS. PT ON PLASTER MOLD MAKER AND CALL LIGHT IN REACH.
--- NOTE | 2020-02-09 06:57 | NUR ---
LAB AT PT'S BEDSIDE
[2020-02-09 07:39] LABS: CKMB 0.2 U/L (0.0-3.6); CREATINE KINASE 28 UL (21-215)
[2020-02-09 13:15] LABS: BASOPHILS 0.1 % (0-2); IMMATURE GRANULOCYTES 0.1 % (0-5); MONOCYTES 7.4 % (2-11)
[2020-02-09 14:42] LABS: CREATINE KINASE 26 UL (21-215)
--- NOTE | 2020-02-09 17:30 | NUR ---
EVENING MEAL PROVIDED
--- NOTE | 2020-02-09 17:31 | NUR ---
PT REPORTS THAT SHE NOTED A SMALL AMT OF BLOOD IN THE TOILET FROM STRAINING WITH HARD STOOL.
--- NOTE | 2020-02-09 18:31 | NUR ---
PT ARRIVES TO ROOM VIA WHEELCHAIR ESCORTED BY ER STAFF. PT IS AAO X 4. RESPIRATIONS ARE EVEN AND UNLABORED. PT ANSWERS ALL QUESTIONS CLEARLY AND APPROPRIATELY. PIV TO RIGHT FA INFUSING PER ORDER WITHOUT DIFFICULTY. PT DENIES PRESENCE OF PAIN/N/V/DYSPNEA/SOB AT THIS TIME. INCENTIVE SPIROMETER AT BEDSIDE. EDUCATION GIVEN. PT VERBALIZES UNDERSTANDING AND DENIES FURTHER QUESTIONS. NON SKID SOCKS OFFERED. PT REFUSES AND STATES 'I DONT LIKE THE WAY THOS THINGS FEEL ON THE BOTTOM OF MY FEET". PT EDUCATED OF FALL RISKS. PT VERBALIZES UNDERSTANDING AND CONT TO REFUSE NON SKID SOCKS. BED IS IN THE LOWEST POSITION. CALL LIGHT AND BEDSIDE TABLE ARE WITHIN REACH. SIDE RAILS X 2. PT DENIES FURTHER NEEDS. WILL CONT TO MONITOR.
[2020-02-09 20:47] LABS: CREATINE KINASE 27 UL (21-215)
[2020-02-10 04:00] VITALS: BP 122/56
[2020-02-10 06:23] LABS: CALC OSMOLALITY 273 mosm/kg (275-300); CALCIUM 8.4 mg/dL (8.5-10.1); CARBON DIOXIDE 26.1 mmol/L (21.0-32.0); CHLORIDE - SERUM 103 mmol/L (98-107); CREATININE - SERUM 0.7 mg/dL (0.6-1.3); GLUCOSE 121 mg/dL (74-106); MAGNESIUM - SERUM 2.5 mg/dL (1.8-2.4); PHOSPHOROUS 3.3 mg/dL (2.5-4.9); POTASSIUM - SERUM 3.9 mmol/L (3.5-5.1); SODIUM 137 mmol/L (136-145); eGFR NON AFRICAN AMERICAN > 90 mL/min (90-120)
[2020-02-10 06:24] LABS: UREA NITROGEN 10 mg/dL (7-18)
[2020-02-10 06:51] LABS: BASOPHILS 0.3 % (0-2); EOSINOPHILS 3.5 % (0-7); HEMATOCRIT 28.5 % (36.0-48.0); IMMATURE GRANULOCYTES 0.3 % (0-5); LYMPHOCYTES 20.3 % (15-50); MCHC 28.1 g/dL (31.0-37.0); MCV 67.7 fL (80.0-100.0); MEAN PLATELET VOLUME 9.4 fL (7.4-10.4); MONOCYTES 7.5 % (2-11); NEUTROPHILS 68.1 % (40-80); PLATELET COUNT 311 10x3/uL (130-400); RBC 4.21 10x6/uL (4.00-5.40); RDW 22.6 % (11.5-14.5); WBC 7.6 10x3/uL (4.8-10.8)
[2020-02-10 09:00] VITALS: BP 138/80
--- NOTE | 2020-02-10 17:36 | MORECARE ---
CASE MANAGEMENT DISCHARGE SUMMARY PATIENT: REBECCA SULTANA UNIT: [id number] ADM DATE: 02/09/20 AGE: 54 : 65 SEX: F ROOM/BED: D.2108 AUTHOR: KIAH VALDES PHYSICIAN: REFERRING PHYSICIAN: ASHOK PACE MD DATE OF SERVICE: 02/10/20 Discharge Plan Patient Name: REBECCA SULTANA Facility: [facility]:[place] : 1965 Planned Disposition: Home Anticipated Discharge Date: 02/11/20 Discharge Date: Expected LOS: 2 Initial Reviewer: [email or web address] Initial Review Date: 02/09/2020 Generated: 02/10/20 6:35 pm Patient Name: REBECCA SULTANA Page [phone] at 1736 All edits/amendments must be made on the electronic document DICTATION DATE: 02/10/201734 SKI PATROL: ROCÍO 02/10/201734 RPT#: [id number] [place] DATE: STATUS: ADM IN [facility] [address] [place] [address] END OF REPORT
--- NOTE | 2020-02-10 19:44 | NUR ---
RECIEVED UP IN BED WITH EYES OPEN AND TV ON. ALERT AND ORIETNED X4. UP AD JORDYN. IV TO RT FA SL. DENIES ANY NEEDS AT THIS TIME.
[2020-02-10 21:00] VITALS: BP 125/76
[2020-02-11 05:00] VITALS: BP 144/81
[2020-02-11 07:16] LABS: BASOPHILS 0.2 % (0-2); EOSINOPHILS 2.4 % (0-7); HEMATOCRIT 29.5 % (36.0-48.0); HEMOGLOBIN 8.2 g/dL (12-16); IMMATURE GRANULOCYTES 0.3 % (0-5); MCHC 27.8 g/dL (31.0-37.0); MCV 67.5 fL (80.0-100.0); MONOCYTES 8.4 % (2-11); NEUTROPHILS 61.7 % (40-80); PLATELET COUNT 307 10x3/uL (130-400); RBC 4.37 10x6/uL (4.00-5.40); RDW 23.6 % (11.5-14.5); WBC 9.3 10x3/uL (4.8-10.8)
[2020-02-11 07:41] LABS: CALC OSMOLALITY 276 mosm/kg (275-300); CALCIUM 8.8 mg/dL (8.5-10.1); CARBON DIOXIDE 26.5 mmol/L (21.0-32.0); CHLORIDE - SERUM 102 mmol/L (98-107); CREATININE - SERUM 0.7 mg/dL (0.6-1.3); GLUCOSE 107 mg/dL (74-106); MAGNESIUM - SERUM 2.3 mg/dL (1.8-2.4); PHOSPHOROUS 3.9 mg/dL (2.5-4.9); POTASSIUM - SERUM 3.6 mmol/L (3.5-5.1); SODIUM 139 mmol/L (136-145); UREA NITROGEN 11 mg/dL (7-18); eGFR NON AFRICAN AMERICAN > 90 mL/min (90-120)
[2020-02-11 08:08] LABS: MCH 18.8 pg (26.0-34.0)
[2020-02-11 10:53] VITALS: BP 129/74
--- NOTE | 2020-02-11 12:23 | MORECARE ---
CASE MANAGEMENT DISCHARGE SUMMARY PATIENT: REBECCA SULTANA UNIT: [id number] ADM DATE: 02/09/20 AGE: 54 : 65 SEX: F ROOM/BED: D.2100 AUTHOR: KEISHA,DOC PHYSICIAN: REFERRING PHYSICIAN: ASHOK PACE MD DATE OF SERVICE: 02/11/20 Discharge Plan Patient Name: REBECCA SULTANA Facility: [facility]:[place] : 1965 Planned Disposition: Home Anticipated Discharge Date: 02/11/20 Discharge Date: Expected LOS: 2 Initial Reviewer: [email or web address] Initial Review Date: 02/09/2020 Generated: 02/11/20 1:23 pm Comments DCP- Discharge Planning Updated by [email or web address]: Javi Frazier on 02/11/20 11:[address] Patient Name: REBECCA SULTANA Admission Status: ER Accout number: [id number] Admission Date: 02-09-2020 : 1965 Admission Diagnosis:CHEST PAIN, UNSPECIFIED Attending: ASHOK PACE Current LOS: 2 Anticipated DC Date: 02-11-2020 Planned Disposition: Home Primary Insurance: [employer] Discharge Planning Comments: CM met with patient for DC planning. Patient is in agreement with DC Plan. Patient lives at home with family. Patient has 0 steps to enter her home. PCP: Dr. Cortez Pharmacy: [facility] in [place]. DME: [employer]. Emergency contact: Whitney Ames (daughter) [phone]. CM discussed HHS, OP Therapy, SNF, Rehab. Patient declined same services. Patient voices no other needs at this time. CM will follow and assist PRN. Filter Plant Supervisor: Javi Frazier DCPIA - Discharge Planning Initial Assessment Updated by [email or web address]: Javi Frazier on 02/11/20 12:18 pm * Is the patient Alert and Oriented? Yes * How many steps to enter\exit or inside your home? 0/0 * PCP Dr. Cortez * Pharmacy [facility] * Preadmission Environment Home with Family * ADLs Independent * Equipment None * Other Equipment NONE * List name and contact numbers for known caregivers / representatives who currently or will assist patient after discharge: Whitney Ames (daughter) [phone] * Verbal permission to speak to the caregivers and representatives has been obtained from the patient. Yes * Community resources currently utilized None * Please name any agencies selected above. none * Additional services required to return to the preadmission environment? No * Can the patient safely return to the preadmission environment? Yes * Has this patient been hospitalized within the prior 30 days at any hospital? No Last DP export: 02/10/20 4:36 Patient Name: REBECCA SULTANA Page [phone] at 1223 All edits/amendments must be made on the electronic document DICTATION DATE: 02/11/20 1223 PRODUCTION QUALITY ANALYST: ROCÍO 02/11/20 1223 RPT#: [id number] DC DATE: STATUS: ADM IN [facility] [address] [place] [address] END OF REPORT
--- NOTE | 2020-02-11 14:01 | NUR ---
0700-LYING IN BED AWAKE, ALERT, ORIENTED. RESP EVEN AND UNLABORED ON RA. DENIES ANY NEEDS OR C/O AT THIS TIME. 0900-AM MEDS ADMINISTERED/ORDER, PT TOLERATED ALL WELL. NO DISTRESS NOTED. 1100-NO CHANGES TO REPORT, NO DISTRESS NOTED. 1300-AWAITING DC. 1400-IV TO RT FA REMOVED, CATH INTACT, SMALL BANDAGE APPLIED, PT TOLERATED ALL WELL. PT IS UP IN ROOM GETTING READY FOR DC. DENIES ANY NEEDS AND DENIES NEED FOR ASSISTANCE AT THIS TIME.
--- NOTE | 2020-02-11 14:10 | NUR ---
ALL DC PAPERWORK VERBALLY EXPLAINED AND GIVEN TO PT AT THIS TIME W/UNDERSTANDING STATED TO ALL. PT AWAITING RIDE HOME AT THIS TIME.
--- NOTE | 2020-02-11 14:49 | NUR ---
Jed BORDEN [facility] TO GIVE PT A VALID DOCTOR EXCUSE FOR THURSDAY AND THURSDAY TO BE OFF WORK.
--- NOTE | 2020-02-11 15:09 | NUR ---
CORRECTION ON THE V.O. FROM RAVINDER [facility] TO GIVE THIS PT DOCTOR EXCUSE FOR THURSDAY, THURSDAY, AND THURSDAY AND TO RETURN TO WORK ON THURSDAY. DR EXCUSE GIVEN TO PT, STAFF MEMBER TOOK PT OUT TO PRIVATE AUTO W/DTR, PT HAS BELONGINGS IN HAND--IN GOOD STABLE CONDITION. NO DISTRESS NOTED.
--- NOTE | 2020-02-13 09:31 | MORECARE ---
CASE MANAGEMENT DISCHARGE SUMMARY PATIENT: REBECCA SULTANA UNIT: [id number] ADM DATE: 02/09/20 AGE: 54 : 65 SEX: F ROOM/BED: D.2546 AUTHOR: KEISHA,DOC PHYSICIAN: REFERRING PHYSICIAN: ASHOK PACE MD DATE OF SERVICE: 02/13/20 Discharge Plan Patient Name: REBECCA SULTANA Facility: [facility]:[place] : 1965 Planned Disposition: Home Anticipated Discharge Date: 02/11/20 Discharge Date: 02/11/2020 Expected LOS: 2 Initial Reviewer: [email or web address] Initial Review Date: 02/09/2020 Generated: 02/13/20 10:30 am Comments DCP- Discharge Planning Updated by [id number]: Javi Frazier on 02/11/20 11:[address] Patient Name: REBECCA SULTANA Admission Status: ER Accout number: [id number] Admission Date: 02-09-2020 : 1965 Admission Diagnosis:CHEST PAIN, UNSPECIFIED Attending: ASHOK PACE Current LOS: 2 Anticipated DC Date: 02-11-2020 Planned Disposition: Home Primary Insurance: [employer] Discharge Planning Comments: CM met with patient for DC planning. Patient is in agreement with DC Plan. Patient lives at home with family. Patient has 0 steps to enter her home. PCP: Dr. Cortez Pharmacy: [facility]. DME: Cane. Emergency contact: Whitney Ames (daughter) [phone]. CM discussed HHS, OP Therapy, SNF, Rehab. Patient declined same services. Patient voices no other needs at this time. CM will follow and assist PRN. Experienced Truck Driver: Javi Frazier DCPIA - Discharge Planning Initial Assessment Updated by [id number]: Javi Frazier on 02/11/20 12:18 pm * Is the patient Alert and Oriented? Yes * How many steps to enter\exit or inside your home? 0/0 * PCP Dr. Cortez * Pharmacy [facility] * Preadmission Environment Home with Family * ADLs Independent * Equipment None * Other Equipment NONE * List name and contact numbers for known caregivers / representatives who currently or will assist patient after discharge: Whitney Ames (daughter) [phone] * Verbal permission to speak to the caregivers and representatives has been obtained from the patient. Yes * Community resources currently utilized None * Please name any agencies selected above. none * Additional services required to return to the preadmission environment? No * Can the patient safely return to the preadmission environment? Yes * Has this patient been hospitalized within the prior 30 days at any hospital? No Last DP export: 02/11/20 11:23 Patient Name: REBECCA SULTANA Page [id number] at 0931 All edits/amendments must be made on the electronic document DICTATION DATE: 02/13/20930 ORNAMENTAL PLASTERER HELPER: ROCÍO 02/13/20930 RPT#: [id number] DC DATE:02/11/20 STATUS: DIS IN [facility] [address] [place] [address] END OF REPORT
== END 2020-02-11 15:11 | disposition home or self-care (01) | DRG 812 ==
LOC: D.ER 00:42 → D.EDHOLD 02:03 → D.M2 02:03
PROVIDERS: Family Medicine; ADMIT Family Medicine; ATTEND Family Medicine
DX: D50.9 Iron deficiency anemia, unspecified (principal); I24.8 Other forms of acute ischemic heart disease; R07.9 Chest pain, unspecified; I10 Essential (primary) hypertension; E78.5 Hyperlipidemia, unspecified; Z87.891 Personal history of nicotine dependence; K64.3 Fourth degree hemorrhoids

== ENCOUNTER 2020-06-21 15:03 | Emergency (ER) | payer MEDICARE ==
[~2020-06-21] VITALS: Ht 152.4 cm; Wt 76.4 kg
[~2020-06-21 15:03] MED LIST changes: +MUCINEX DM ER1 EAC1 PO; +STERAPRED 5MG 65 M1 PO; +VIBRAMYCIN 100100 MG PO
[2020-06-21 15:09] VITALS: Ht 152.4 cm; Wt 76.4 kg
[2020-06-21 16:03] LABS: INFLUENZA TYPE A NEGATIVE (NEGATIVE); INFLUENZA TYPE B NEGATIVE (NEGATIVE); SARS-CoV-2 ANTIGEN NEGATIVE- SARS-COV-2 (NEGATIVE)
[2020-06-21 16:17] LABS: HEMATOCRIT 25.4 % (36.0-48.0); LYMPHOCYTES 31.3 % (15-50); MCV 64.6 fL (80.0-100.0); MEAN PLATELET VOLUME 9.2 fL (7.4-10.4); NEUTROPHILS 63.4 % (40-80); PLATELET COUNT 311 10x3/uL (130-400); RBC 3.93 10x6/uL (4.00-5.40); WBC 5.2 10x3/uL (4.8-10.8)
[2020-06-21 16:17] LABS: BILIRUBIN NEGATIVE (NEGATIVE); KETONE NEGATIVE (NEGATIVE); NITRITE NEGATIVE (NEGATIVE); UROBILINOGEN NORMAL mg/dL (< 2)
[2020-06-21 16:28] LABS: HEMOGLOBIN 6.6 g/dL (12-16); MCH 16.8 pg (26.0-34.0)
[2020-06-21 16:44] LABS: CALC OSMOLALITY 279 mosm/kg (275-300); CALCIUM 8.8 mg/dL (8.5-10.1); CARBON DIOXIDE 26.6 mmol/L (21.0-32.0); CHLORIDE - SERUM 106 mmol/L (98-107); CREATININE - SERUM 0.6 mg/dL (0.6-1.3); GLUCOSE 114 mg/dL (74-106); POTASSIUM - SERUM 4.2 mmol/L (3.5-5.1); SODIUM 141 mmol/L (136-145); UREA NITROGEN 8 mg/dL (7-18); eGFR NON AFRICAN AMERICAN > 90 mL/min (90-120)
[2020-06-21 16:46] LABS: ALBUMIN 3.7 g/dL (3.4-5.0); ALKALINE PHOSPHATASE 131 U/L (30-120); ALT (SGPT) 20 U/L (10-68); BILIRUBIN - TOTAL 0.47 mg/dL (0.2-1.3); PROTEIN - SERUM 7.7 g/dL (6.4-8.2)
[2020-06-21 17:18] VITALS: BP 164/90
== END 2020-06-21 17:20 | disposition home or self-care (01) ==
LOC: D.ER 15:03
PROVIDERS: Emergency Medicine
DX: J11.1 Influenza due to unidentified influenza virus with other respiratory manifestations (principal); D50.9 Iron deficiency anemia, unspecified; R50.9 Fever, unspecified; I10 Essential (primary) hypertension; E78.5 Hyperlipidemia, unspecified; R51.9 Headache, unspecified

== ENCOUNTER 2020-07-09 13:18 | Emergency (ER) | payer MEDICARE ==
[~2020-07-09] VITALS: Ht 152.4 cm; Wt 76.4 kg
[2020-07-09 13:37] VITALS: Ht 152.4 cm; Wt 76.4 kg
[2020-07-09 16:59] VITALS: BP 136/71
== END 2020-07-09 17:05 | disposition home or self-care (01) ==
LOC: D.ER 13:18
DX: G43.909 Migraine, unspecified, not intractable, without status migrainosus (principal); I10 Essential (primary) hypertension; E78.5 Hyperlipidemia, unspecified

== ENCOUNTER 2020-07-11 01:45 | Inpatient (IN) | payer MEDICARE ==
[~2020-07-11] VITALS: Ht 152.4 cm; Wt 76.2 kg
[2020-07-11 02:16] LABS: BASOPHILS 0.2 % (0-2); EOSINOPHILS 3.3 % (0-7); HEMATOCRIT 22.1 % (36.0-48.0); IMMATURE GRANULOCYTES 0.1 % (0-5); LYMPHOCYTE ABS# 1.87 10x3/uL (1.18-3.74); LYMPHOCYTES 23.2 % (15-50); MCHC 25.3 g/dL (31.0-37.0); MCV 64.2 fL (80.0-100.0); MEAN PLATELET VOLUME 9.4 fL (7.4-10.4); MONOCYTES 8.4 % (2-11); NEUTROPHIL ABS# 5.21 10x3/uL (1.56-6.13); NEUTROPHILS 64.8 % (40-80); PLATELET COUNT 303 10x3/uL (130-400); RBC 3.44 10x6/uL (4.00-5.40); RDW 21.1 % (11.5-14.5); WBC 8.1 10x3/uL (4.8-10.8)
[2020-07-11 02:30] LABS: APTT 25.2 SECONDS (22.8-39.4); INR 1.12 (0.85-1.17); PROTIME 13.4 SECONDS (11.6-15.0)
[2020-07-11 02:31] LABS: D-DIMER-QUANTITATIVE 0.29 ug/mLFEU (0.20-0.54)
[2020-07-11 02:34] LABS: BACTERIA FEW HPF (NONE SEEN); BILIRUBIN NEGATIVE (NEGATIVE); KETONE NEGATIVE (NEGATIVE); NITRITE NEGATIVE (NEGATIVE); SQUAMOUS EPITHELIAL 0-5 HPF (0-4); UROBILINOGEN NORMAL mg/dL (< 2); WHITE CELLS - URINE 0-5 HPF (0-4)
[2020-07-11 02:42] LABS: C-REACTIVE PROTEIN 0.7 mg/dL (0.0-0.9); THYROID STIMULATING HORMONE 1.46 uIU/mL (0.36-3.74); TROPONIN-I < 0.017 ng/mL (0.000-0.060)
[2020-07-11 02:53] LABS: HEMOGLOBIN 5.6 g/dL (12-16); MCH 16.3 pg (26.0-34.0)
[2020-07-11 03:14] LABS: CALC OSMOLALITY 273 mosm/kg (275-300); CALCIUM 8.7 mg/dL (8.5-10.1); CARBON DIOXIDE 21.4 mmol/L (21.0-32.0); CHLORIDE - SERUM 104 mmol/L (98-107); CREATININE - SERUM 0.8 mg/dL (0.6-1.3); GLUCOSE 128 mg/dL (74-106); POTASSIUM - SERUM 3.4 mmol/L (3.5-5.1); SODIUM 137 mmol/L (136-145); UREA NITROGEN 6 mg/dL (7-18); eGFR NON AFRICAN AMERICAN 79 mL/min (90-120)
[2020-07-11 03:20] LABS: ALBUMIN 3.4 g/dL (3.4-5.0); ALKALINE PHOSPHATASE 115 U/L (30-120); ALT (SGPT) 17 U/L (10-68); BILIRUBIN - TOTAL 0.25 mg/dL (0.2-1.3); PROTEIN - SERUM 7.5 g/dL (6.4-8.2)
[2020-07-11 03:28] VITALS: BP 153/77
[2020-07-11 04:14] LABS: UDS - AMPHET NEGATIVE QUAL (NEGATIVE); UDS - BARB NEGATIVE QUAL (NEGATIVE); UDS - BENZO NEGATIVE QUAL (NEGATIVE); UDS - COCAINE NEGATIVE QUAL (NEGATIVE); UDS - OPIATE NEGATIVE QUAL (NEGATIVE); UDS - PCP NEGATIVE QUAL (NEGATIVE); UDS - THC NEGATIVE QUAL (NEGATIVE)
--- NOTE | 2020-07-11 04:31 | NUR ---
AFTER ATTEMPTING TO TALK PT INTO THE BLOOD TRANSFUSION MULTIPLE TIMES PT SIGNED REFUSAL TO TRANSFUSE. PT AND DAUGHTER INFORMED OF RISKS. AT BEDSIDE.
[2020-07-11] MEDS ORDERED: ACETAMINOPHEN325 MG PO (06:44)
[2020-07-11] MEDS ORDERED: BENADRYL25 MG PO (06:45)
--- NOTE | 2020-07-11 07:57 | NUR ---
PATIENT ARRIVED TO UNIT AT 0634. PIV TO RIGHT AC. CONSENT FOR BLOOD TRANSFUSION SIGNED AND IN CHART.
--- NOTE | 2020-07-11 07:57 | NUR ---
RECIEVED BEDSIDE REPORT. PATIENT ALERT AND ORIENTED SITTING UP IN BED. DENIES NEEDS AT THIS TIME. FREE FROM SIGNS OF DISTRESS. BED LOW POSITION, CALL LIGHT IN REACH. WILL CONTINUE TO MONITOR.
[2020-07-11 08:25] VITALS: BP 128/64; BMI 32.8
--- NOTE | 2020-07-11 09:00 | NUR ---
BLOOD STARTED AT THIS TIME. 15 MINUTES OBSERVATION COMPLETED. PATIENT DENIES NEEDS AT THIS TIME. WILL CONTINUE TO MONITOR.
[2020-07-11 09:16] LABS: CHOL - HDL RATIO 5.2 ratio (2.3-4.1); LDL-HDL RATIO 3.1 ratio (1.5-3.5)
[2020-07-11 13:34] VITALS: BMI 32.8
--- NOTE | 2020-07-11 14:30 | NUR ---
SECOND UNIT OF BLOOD STARTED. 15 MINUTE OBSERVATION TIME COMPLETED. PATIENT DENIES NEEDS AT THIS TIME. WILL CONTINUE TO MONITOR.
[2020-07-11 17:30] VITALS: BP 166/80
--- NOTE | 2020-07-11 18:48 | NUR ---
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 TOLD NURSE THERE WAS BLOOD PRESENT IN THE TOILET. MODERATE AMOUNT PRESENT IN TOILET BOWL. CLOTS PRESENT. PATIENT STATES IT IS FROM HER HEMORRHOIDS. INSPECTED SITE AND NOTED SOME BLEEDING. CALLED ABAD LAFLEUR APRN. EXPLAINED SITUATION. WILL FOLLOW ORDERS AND CALL IF ANOTHER BLOODY ESPISODE OCCURS.
[2020-07-11 19:16] LABS: HEMATOCRIT 26.7 % (36.0-48.0); HEMOGLOBIN 7.5 g/dL (12-16)
[2020-07-11 20:00] VITALS: BP 136/69
[2020-07-11 21:56] VITALS: Ht 152.4 cm; Wt 76.2 kg
[2020-07-11 23:36] LABS: HEMATOCRIT 26.7 % (36.0-48.0); HEMOGLOBIN 7.6 g/dL (12-16)
[2020-07-12] VITALS: BP 151/75
--- NOTE | 2020-07-12 03:40 | NUR ---
I have reviewed this patient and I concur with the Shift Assessment completed by the Licensed Practical Nurse today this shift.
[2020-07-12 04:00] VITALS: BP 160/93
[2020-07-12 04:30] LABS: BILIRUBIN NEGATIVE (NEGATIVE); KETONE NEGATIVE (NEGATIVE); NITRITE NEGATIVE (NEGATIVE); UROBILINOGEN NORMAL mg/dL (< 2)
[2020-07-12 04:43] LABS: BACTERIA FEW HPF (NONE SEEN); SQUAMOUS EPITHELIAL 0-5 HPF (0-4); WHITE CELLS - URINE 0-5 HPF (0-4)
--- NOTE | 2020-07-12 04:49 | NUR ---
PT RESTING IN BED WITH EYES OPEN, NO SIGNS OF DISTRESS ALERT AND ORIENTED. CALL LIGHT WITHIN REACH.
[2020-07-12 05:59] LABS: BASOPHILS 0.4 % (0-2); EOSINOPHILS 2.7 % (0-7); HEMATOCRIT 28.1 % (36.0-48.0); LYMPHOCYTE ABS# 1.52 10x3/uL (1.18-3.74); LYMPHOCYTES 20.8 % (15-50); MCHC 28.5 g/dL (31.0-37.0); NEUTROPHIL ABS# 5.11 10x3/uL (1.56-6.13); NEUTROPHILS 70.1 % (40-80); PLATELET COUNT 296 10x3/uL (130-400); RBC 4.02 10x6/uL (4.00-5.40); RDW 24.9 % (11.5-14.5); RETIC 0.62 % (0.45-2.28); WBC 7.3 10x3/uL (4.8-10.8)
[2020-07-12 06:19] LABS: % SATURATION 6 % (15-55); IRON 29 ug/dl (35-150); TOTAL IRON BIND CAPACITY 426 ug/dl (260-445); UNSAT IRON BIND CAPACITY 397 ug/dl (150-375)
[2020-07-12 06:19] LABS: MCH 19.9 pg (26.0-34.0); MCV 69.9 fL (80.0-100.0)
[2020-07-12 06:51] LABS: ALBUMIN 3.1 g/dL (3.4-5.0); ALKALINE PHOSPHATASE 101 U/L (30-120); ALT (SGPT) 14 U/L (10-68); BILIRUBIN - TOTAL 0.74 mg/dL (0.2-1.3); CALC OSMOLALITY 272 mosm/kg (275-300); CALCIUM 8.3 mg/dL (8.5-10.1); CHLORIDE - SERUM 105 mmol/L (98-107); FERRITIN 4 ng/mL (3-244); GLUCOSE 118 mg/dL (74-106); MAGNESIUM - SERUM 2.5 mg/dL (1.8-2.4); PHOSPHOROUS 2.6 mg/dL (2.5-4.9); PROTEIN - SERUM 6.9 g/dL (6.4-8.2); SODIUM 137 mmol/L (136-145); UREA NITROGEN 6 mg/dL (7-18)
[2020-07-12 06:55] LABS: CARBON DIOXIDE 27.1 mmol/L (21.0-32.0); CREATININE - SERUM 0.5 mg/dL (0.6-1.3); POTASSIUM - SERUM 4.4 mmol/L (3.5-5.1); eGFR NON AFRICAN AMERICAN > 90 mL/min (90-120)
--- NOTE | 2020-07-12 07:31 | NUR ---
RECIEVED BEDSIDE REPORT. PATIENT RESTING, AROUSES TO VOICE. DENIES NEEDS AT THIS TIME. BED LOW POSITION, CALL LIGHT IN REACH. IV INFUSING PER MAR. WILL CONTINUE TO MONITOR.
[2020-07-12 08:14] VITALS: BP 146/83
--- NOTE | 2020-07-12 11:45 | NUR ---
PATIENT REFUSED ANNUSOL SUPPOSITORY. SAID SHE DID NOT NEED IT AND SHE DID NOT WANT IT. NOTIFIED SUZANNA SOL APRN.
[2020-07-12 11:50] LABS: HEMATOCRIT 26.5 % (36.0-48.0)
[2020-07-12 11:53] LABS: HEMOGLOBIN 7.5 g/dL (12-16)
--- NOTE | 2020-07-12 11:57 | NUR ---
SHAYNE BRISENO MADE AWARE OF HGB 7.5. STATES TO PLACE CONSULT FOR DR WEINER FOR BRIGHT RED BLOOD FROM RECTUM. ORDER PLACED.
[2020-07-12 12:24] VITALS: BP 156/81
[2020-07-12 13:02] LABS: BASOPHILS 0.2 % (0-2); EOSINOPHILS 3.4 % (0-7); HEMATOCRIT 27.6 % (36.0-48.0); HEMOGLOBIN 7.7 g/dL (12-16); IMMATURE GRANULOCYTES 0.2 % (0-5); LYMPHOCYTE ABS# 1.32 10x3/uL (1.18-3.74); LYMPHOCYTES 26.1 % (15-50); MCHC 27.9 g/dL (31.0-37.0); MCV 70.4 fL (80.0-100.0); MEAN PLATELET VOLUME 9.5 fL (7.4-10.4); MONOCYTES 5.3 % (2-11); NEUTROPHIL ABS# 3.28 10x3/uL (1.56-6.13); NEUTROPHILS 64.8 % (40-80); PLATELET COUNT 242 10x3/uL (130-400); RBC 3.92 10x6/uL (4.00-5.40); RDW 25.2 % (11.5-14.5)
[2020-07-12 13:03] LABS: MCH 19.6 pg (26.0-34.0); WBC 5.1 10x3/uL (4.8-10.8)
--- NOTE | 2020-07-12 13:12 | NUR ---
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 IV PUMP BATTERY LOW, PLUGGED PUMP IN. DENIES FURTHER NEEDS. FREE FROM SIGNS OF DISTRESS. WILL CONTINUE TO MONITOR.
[2020-07-12 15:27] LABS: HEMATOCRIT 27.2 % (36.0-48.0); HEMOGLOBIN 7.6 g/dL (12-16)
[2020-07-12 18:46] VITALS: BP 178/86
[2020-07-12 19:07] LABS: HEMATOCRIT 27.6 % (36.0-48.0); HEMOGLOBIN 7.7 g/dL (12-16)
[2020-07-12 20:00] VITALS: BP 150/82
[2020-07-13] VITALS: BP 128/83
--- NOTE | 2020-07-13 01:33 | NUR ---
PT REFUSE ANNUSOL SUPP AND METAMUCIL SHE SAID SHE WILL MIGHT TAKE THEM KISHORE. SHE COMPLAIN OF SLIGHT HEADACHE BUT DOESN'T NEED ANY MEDICATION. WILL CONT TO MONITOR.
[2020-07-13 04:00] VITALS: BP 131/72
--- NOTE | 2020-07-13 05:05 | NUR ---
I have reviewed this patient and I concur with the Shift Assessment completed by the Licensed Practical Nurse today this shift.
[2020-07-13 06:11] LABS: BASOPHILS 0.1 % (0-2); EOSINOPHILS 2.9 % (0-7); HEMATOCRIT 28.1 % (36.0-48.0); HEMOGLOBIN 7.8 g/dL (12-16); IMMATURE GRANULOCYTES 0.3 % (0-5); LYMPHOCYTE ABS# 1.47 10x3/uL (1.18-3.74); LYMPHOCYTES 20.2 % (15-50); MCHC 27.8 g/dL (31.0-37.0); MCV 70.8 fL (80.0-100.0); MEAN PLATELET VOLUME 9.4 fL (7.4-10.4); MONOCYTES 7.7 % (2-11); NEUTROPHILS 68.8 % (40-80); PLATELET COUNT 257 10x3/uL (130-400); RBC 3.97 10x6/uL (4.00-5.40); RDW 25.7 % (11.5-14.5)
[2020-07-13 06:22] LABS: ALBUMIN 3.2 g/dL (3.4-5.0); ALKALINE PHOSPHATASE 98 U/L (30-120); ALT (SGPT) 15 U/L (10-68); BILIRUBIN - TOTAL 0.42 mg/dL (0.2-1.3); CALCIUM 8.4 mg/dL (8.5-10.1); CARBON DIOXIDE 25.9 mmol/L (21.0-32.0); CHLORIDE - SERUM 108 mmol/L (98-107); CREATININE - SERUM 0.6 mg/dL (0.6-1.3); GLUCOSE 101 mg/dL (74-106); MAGNESIUM - SERUM 2.3 mg/dL (1.8-2.4); POTASSIUM - SERUM 4.6 mmol/L (3.5-5.1); PROTEIN - SERUM 6.5 g/dL (6.4-8.2); SODIUM 140 mmol/L (136-145); eGFR NON AFRICAN AMERICAN > 90 mL/min (90-120)
[2020-07-13 06:25] LABS: MCH 19.6 pg (26.0-34.0); WBC 7.3 10x3/uL (4.8-10.8)
[2020-07-13 06:33] LABS: CALC OSMOLALITY 276 mosm/kg (275-300); PHOSPHOROUS 3.5 mg/dL (2.5-4.9); UREA NITROGEN 8 mg/dL (7-18)
--- NOTE | 2020-07-13 08:05 | NUR ---
RECIEVED BEDSIDE REPORT. IN BED SLEEPING. AROUSES TO VOICE. DENIES NEEDS AT THIS TIME. BED LOW POSITION, CALL LIGHT IN REACH. FREE FROM SIGNS OF DISTRESS, WILL CONTINUE TO MONITOR.
[2020-07-13 09:23] VITALS: BP 139/80
[2020-07-13] MEDS ORDERED: ANUSOL-HC25 MG RC (12:05)
[2020-07-13] MEDS ORDERED: METAMUCIL PACKE1 PKT PO (12:05)
[2020-07-13 12:31] VITALS: BP 155/84
--- NOTE | 2020-07-13 14:40 | NUR ---
BLOOD STARTED. 15 MINUTE OBSERVATION COMPLETE. VITAL SIGNS STABLE. WILL CONTINUE TO MONITOR.
[2020-07-13 20:33] VITALS: BP 170/82
--- NOTE | 2020-07-13 22:56 | NUR ---
PT IV REMOVED WITH NO COMPLICATIONS SKIN INTACT. DISCHARGE TO HOME INFO GIVEN TO PATIENT FOR FOLLOW UP APPT AND MEDICATION. PT REQUEST A WORK EXCUSE SHE STATE THAT ER [facility]MA[facility] PERDUE OK FOR HER TO GET A FEW DAYS OFF PER ABAD OK TO GO BACK TO WORK ON 07/16/20 PT INDICATED IF ANY MORE DAYS NEEDED SHE NEEDS TO FOLLOW UP WITH PCP.
== END 2020-07-13 22:07 | disposition home or self-care (01) | DRG 812 ==
LOC: D.ER 01:45 → D.MS 05:52
PROVIDERS: Emergency Medicine; Family Medicine; ADMIT Family Medicine; ATTEND Family Medicine
DX: D50.9 Iron deficiency anemia, unspecified (principal); K64.9 Unspecified hemorrhoids; G43.909 Migraine, unspecified, not intractable, without status migrainosus; I10 Essential (primary) hypertension; E78.5 Hyperlipidemia, unspecified; M19.90 Unspecified osteoarthritis, unspecified site

== ENCOUNTER → 2020-07-30 | Emergency (ER) | payer MEDICARE ==
[~2020-07-30] MED LIST changes: +ACETAMINOPHEN325 MG PO; +ANUSOL-HC25 MG RC; +BENADRYL25 MG PO; +METAMUCIL PACKE1 PKT PO
== END | disposition home or self-care (01) ==
LOC: D.ER 13:50
DX: S93.402A Sprain of unspecified ligament of left ankle, initial encounter (principal); I10 Essential (primary) hypertension; E78.5 Hyperlipidemia, unspecified; X50.9XXA Other and unspecified overexertion or strenuous movements or postures, initial encounter; Y93.9 Activity, unspecified; Y92.9 Unspecified place or not applicable

== ENCOUNTER 2020-10-10 08:07 | Emergency (ER) | payer MEDICARE ==
[~2020-10-10] VITALS: Ht 152.4 cm; Wt 80.9 kg
[2020-10-10 08:16] VITALS: Ht 152.4 cm; Wt 80.9 kg
[2020-10-10 09:18] LABS: BASOPHILS 0.6 % (0-2); HEMATOCRIT 30.8 % (36.0-48.0); HEMOGLOBIN 9.2 g/dL (12-16); LYMPHOCYTES 21.6 % (15-50); MCH 20.7 pg (26.0-34.0); MCV 69.1 fL (80.0-100.0); MONOCYTES 7.6 % (2-11); NEUTROPHILS 67.2 % (40-80); PLATELET COUNT 286 10x3/uL (130-400); RBC 4.46 10x6/uL (4.00-5.40); RDW 19.9 % (11.5-14.5); WBC 6.1 10x3/uL (4.8-10.8)
[2020-10-10] MEDS ORDERED: TESSALON PERLE100 MG PO (09:24)
[2020-10-10] MEDS ORDERED: ZOFRAN ODT4 MG/UDTAB PO (09:24)
[2020-10-10 09:26] LABS: CALC OSMOLALITY 279 mosm/kg (275-300); CALCIUM 8.6 mg/dL (8.5-10.1); CARBON DIOXIDE 26.9 mmol/L (21.0-32.0); CHLORIDE - SERUM 106 mmol/L (98-107); CREATININE - SERUM 0.6 mg/dL (0.6-1.3); GLUCOSE 115 mg/dL (74-106); POTASSIUM - SERUM 4.1 mmol/L (3.5-5.1); SODIUM 141 mmol/L (136-145); UREA NITROGEN 7 mg/dL (7-18); eGFR NON AFRICAN AMERICAN > 90 mL/min (90-120)
[2020-10-10 09:32] LABS: ALBUMIN 3.4 g/dL (3.4-5.0); ALKALINE PHOSPHATASE 109 U/L (30-120); ALT (SGPT) 25 U/L (10-68); BILIRUBIN - TOTAL 0.24 mg/dL (0.2-1.3); PROTEIN - SERUM 7.4 g/dL (6.4-8.2)
[2020-10-10 10:15] VITALS: BP 163/104
== END 2020-10-10 10:15 | disposition home or self-care (01) ==
LOC: D.ER 08:07
PROVIDERS: Family Medicine
DX: J06.9 Acute upper respiratory infection, unspecified (principal); R11.0 Nausea; I10 Essential (primary) hypertension; E78.5 Hyperlipidemia, unspecified

== ENCOUNTER 2020-10-23 17:25 | Emergency (ER) | payer MEDICARE ==
[~2020-10-23] VITALS: Ht 152.4 cm; Wt 81.8 kg
[~2020-10-23 17:25] MED LIST changes: +TESSALON PERLE100 MG PO
[2020-10-23 18:13] VITALS: BP 189/91; Ht 152.4 cm; Wt 81.8 kg
[2020-10-23] MEDS ORDERED: CLEOCIN HCL300 MG PO (18:19)
[2020-10-23] MEDS ORDERED: HYDROCODON-ACE1 EAC7 PO (18:19)
== END 2020-10-23 18:40 | disposition home or self-care (01) ==
LOC: D.ER 17:25
DX: K04.7 Periapical abscess without sinus (principal); I10 Essential (primary) hypertension; E78.5 Hyperlipidemia, unspecified